=== PATIENT | female | born 1990 | race Caucasian/White ===

== ENCOUNTER 2024-01-18 17:03 | Emergency (ER) | payer OTHER, SELFPAY ==
[2024-01-18 17:08] VITALS: BP 131/86; PULSE 61; RESP 16; TEMP 36.6; O2SAT 99; BMI 31.5
--- NOTE | 2024-01-18 17:22 | CRLHL7_ITS ---
For Patients: As a result of the Century Cures Act, medical imaging exams and procedure reports are released immediately into your electronic medical record. You may view this report before your referring provider. If you have questions, please contact your health care provider. INDICATION: First trimester bleeding. TECHNIQUE: Ultrasound OB pelvis transvaginal. Real-time fermin-scale imaging of the pelvis was performed. COMPARISON: None. FINDINGS: Intrauterine gestation: Single. heart activity (bpm): 173. [place]-rump length: 1.3 cm. Estimated ultrasound age: 7 weeks 4 days. PATRICK by ultrasound: September 01, 2024. Yolk sac: Normal. Perigestational hemorrhage: Small 5 mm fluid collection adjacent to the gestational. Ovaries and adnexa: Unremarkable. Suspicious pelvic fluid collections: None. IMPRESSION: Single viable intrauterine . No sign of overt hemorrhage. Dictated by Roly Spear MD @ 01/18/2024 8:52:22 PM (Electronically Signed)
[2024-01-18 17:46] LABS: Basophils Percent Auto 0.1 % (0.0-3.0); Eosinophils Percent Auto 1.7 % (0.0-7.0); Hematocrit 40.1 % (33.0-51.0); Hemoglobin* 13.3 gm/dL (12.0-16.0); Immature Granulocytes Pct Auto 0.1 %; Lymphocytes Percent Auto 17.5 % (20-44); Mean Corpuscular HGB Conc 33 gm/dL (32-36); Mean Corpuscular Hemoglobin 30 pg (26-34); Mean Corpuscular Volume 91 fL (80-100); Monocytes Percent Auto 5.8 % (0.0-11.0); Neutrophils Percent Auto 74.8 % (42.0-72.0); Platelet Count* 260 K/uL (140-440); RDW Coefficient of Variation % 12.8 % (11.5-15.5); Red Blood Count 4.41 m/uL (4.00-5.20); White Blood Count* 15.34 K/uL (4.50-11.00)
[2024-01-18 17:50] LABS: Slide Review Reflex No
[2024-01-18 18:01] LABS: Chloride* 104 mmol/L (96-114); Sodium* 136 mmol/L (135-149)
[2024-01-18 18:02] LABS: Potassium* 3.7 mmol/L (3.6-5.1)
[2024-01-18 18:04] LABS: Creatinine* 0.6 mg/dL (0.5-1.5); Est. Creatinine Clearance* 123.68; Estimated Glomerular Filt Rate 121 ml/min
[2024-01-18 18:05] LABS: Anion Gap 7 mEq/L (7-15); Blood Urea Nitrogen* 11 mg/dL (5-24); Calcium* 8.8 mg/dL (8.4-10.6); Carbon Dioxide* 25 mmol/L (20-32); Glucose* 106 mg/dL (60-115)
--- NOTE | 2024-01-18 18:10 | ED.PREGNANCY ---
HPI - General Date Seen: 01/18/24 Chief complaint: OB/Uterine Contractions Stated complaint: 7 wks cramping&bleeding Time Seen by Provider: 01/18/24 17:04 Source: patient Mode of arrival: ambulatory Limitations: no limitations History of Present Illness HPI Narrative: Patient is a 7 weeks via IVF presenting to emergency department for vaginal bleeding and lower abdominal cramping. She states for the last few days she has been having some spotting that has gradually gotten worse. Today is the 1st time she felt like she needed to use a 10 on in removed after several hours and she states it still was not saturated. She still felt that she was bleeding though so she put in another tampon. She denies number school to go chest pain, shortness of breath, diarrhea, constipation, weakness, numbness, headache, vision changes. Has been having some nausea but currently is not feeling nauseated. Did not have any complication with her 1st . This was worse when she had done the IVF. Ultrasound done 1 week ago was normal. Eating drinking without issues. Denies hematochezia or melena. Denies dysuria, vaginal discharge. Is got seen in OB provider yet Related Data Home Medications ?Medication ?Instructions ?Recorded ?Confirmed Progest 01/18/24 aspirin 81 mg tablet,delayed 81 mg PO DAILY 01/18/24 01/18/24 release (Adult Aspirin Regimen) estradiol 0.1 mg/24 hr semiweekly transdermal 01/18/24 transdermal patch (Trinh) Allergies Allergy/AdvReac Type Severity Reaction Status Date / Time amoxicillin Allergy Mild Verified 01/18/24 17:14 codeine Allergy Mild Verified 01/18/24 17:14 Review of Systems Status of ROS: Reports: 10 or more systems reviewed and unremarkable except as noted in History and below PFSH PFS Social History Smoking Status: Never smoker How often do you have a drink containing alcohol: never AUDIT-C Alcohol total score: 0 Non-prescribed substance use: denies use Exam Narrative: Exam Narrative: Const: Well-nourished, Well-developed, in mild distress Eyes: PERRL, no conjunctival injection, and symmetrical lids HENT: Atraumatic external nose and ears. Moist mucous membranes. Neck: Symmetric, trachea midline, No thyromegaly. CVS: RRR, No murmurs or gallops. Peripheral pulses 2+ and equal in all extremities RESP: Unlabored respiratory effort. Clear to auscultation bilaterally. GI: Nontender/Nondistended, No rebound or guarding. MSK:Extremities w/o deformity, Normal Active ROM Skin: Warm, Dry. No rashes or lesions. Neuro: Normal Muscle tone, No focal neurological deficits. Psych: Awake, Alert, & Oriented x3. Appropriate mood and affect. Const: Vital Signs, click to edit/add: Vital Signs - 24 hr 01/18/24 17:08 01/18/24 20:07 01/18/24 20:08 Temperature 98 F Pulse Rate 63 70 Pulse Rate [Pulse Oximeter] 61 Respiratory Rate 16 20 Blood Pressure 131/75 Blood Pressure [Ri ght Upper Arm] 131/86 Pulse Oximetry 99 99 99 Oxygen Delivery Me thod Room Air Room Air 01/18/24 20:09 Temperature Pulse Rate 68 Pulse Rate [Pulse Oximeter] Respiratory Rate Blood Pressure Blood Pressure [Ri ght Upper Arm] Pulse Oximetry 99 Oxygen Delivery Me thod Room Air Course Vital Signs Vital signs: Initial Vital Signs Temperature 98 F 01/18/24 17:08 Temperature Source Temporal Artery Scan 01/18/24 17:08 Pulse Rate 61 01/18/24 17:08 Respiratory Rate 16 01/18/24 17:08 Blood Pressure 131/86 01/18/24 17:08 Blood Pressure Mean 101 01/18/24 17:08 Blood Pressure Position Supine 01/18/24 17:08 Pulse Oximetry 99 01/18/24 17:08 Oxygen Delivery Method Room Air 01/18/24 17:08 Vital Signs Temperature 98 F 01/18/24 17:08 Pulse Rate 61 01/18/24 17:08 Respiratory Rate 16 01/18/24 17:08 Blood Pressure 131/86 01/18/24 17:08 Pulse Oximetry 99 01/18/24 17:08 Oxygen Delivery Method Room Air 01/18/24 17:08 Temperature 98 F 01/18/24 17:08 Pulse Rate 68 01/18/24 20:09 Respiratory Rate 20 01/18/24 20:08 Blood Pressure 131/75 01/18/24 20:08 Pulse Oximetry 99 01/18/24 20:09 Oxygen Delivery Method Room Air 01/18/24 20:09 MDM - OB/Uterine Contractions MDM Narrative Medical decision making narrative: Patient is a 33 year female presenting for vaginal bleeding. She is 7 weeks . We will do an ultrasound to look for signs level could be causing bleeding. Will also do a CBC, BMP, hCG qualitative and a urinalysis. Is not needing anything for pain or nausea at this time. The CBC and a slightly elevated 15.34 is not as worried this could likely be from her family fairly a. A BMP shows no concerning abnormalities. The urinalysis shows large and ptotic no signs of UTI. Some had both a 1 [place] [id number]. Initial ultrasound preliminary read showed a normal ultrasound with a heart rate of 170 beats per minute. After his ultrasound the patient passed a clot in there appears to be a yolk sac within this. On exam it appears like there is a small fetus within but is hard to definitively say. I spoke to Dr. Simpson who recommends 78 1st surgical pathology if the patient does not want to keep it. Also recommends RhoGAM if she is Rh negative. Patient does not want to keep the likely yolk sac but is adamant that she wants a another ultrasound to confirm that there is no longer a viable . Patient did start having increase in her bleeding. She changed her pad and it was about half saturated after about 30 minutes. it appears that she has now passed the placenta in the toilet. This will also be sent for pathology. Primary for repeat ultrasound shows an empty uterus. Patient is now trying to go home but she will wait for the type and screen W. She has a positive and does not need RhoGAM. She will be discharged. Will update her with the results of the ultrasounds tomorrow if there are any concerning findings compared to the preliminary reads. Lab Data Labs: Lab Results 01/18/24 01/18/24 01/18/24 Range/Units 17:40 18:55 19:54 WBC 15.34 H (4.50-11.00) K/uL RBC 4.41 (4.00-5.20) m/uL Hgb 13.3 (12.0-16.0) gm/dL Hct 40.1 (33.0-51.0) % MCV 91 (80-100) fL MCH 30 (26-34) pg MCHC 33 (32-36) gm/dL RDW Coeff of Darshana 12.8 (11.5-15.5) % Plt Count 260 (140-440) K/uL Neut % (Auto) 74.8 H (42.0-72.0) % Lymph % (Auto) 17.5 L (20-44) % [place] % (Auto) 5.8 (0.0-11.0) % Eos % (Auto) 1.7 (0.0-7.0) % Baso % (Auto) 0.1 (0.0-3.0) % Neut # (Auto) 11.50 H (1.7-7.0) K/uL Lymph # (Auto) 2.70 (0.90-2.90) K/uL [place] # (Auto) 0.90 (0.00-0.90) K/UL Eos # (Auto) 0.30 (0.00-0.50) K/uL Baso # (Auto) 0.00 (0.00-0.30) K/uL Abs Immat Gran (auto) 0.00 (0.00-0.30) K/uL Imm/Tot Granulo (auto) 0.1 % Sodium 136 (135-149) mmol/L Potassium 3.7 (3.6-5.1) mmol/L Chloride 104 (96-114) mmol/L Carbon Dioxide 25 (20-32) mmol/L Anion Gap 7 (7-15) mEq/L BUN 11 (5-24) mg/dL Creatinine 0.6 (0.5-1.5) mg/dL Estimated Creat Clear 123.68 Estimated GFR 121 ml/min Glucose 106 (60-115) mg/dL Calcium 8.8 (8.4-10.6) mg/dL HCG, Quant 40526.00 mIU/mL Urine Color [place] A (Yellow) Urine Appearance Slightly Cloudy A (Clear) Urine pH 7.5 (5.0-8.5) Ur Specific [place] 1.020 (1.000-1.030) Urine Protein Trace A (Negative) Urine Glucose (UA) Negative (Negative) Urine Ketones Negative (Negative) Urine Blood 3+ A (Negative) Urine Nitrite Negative (Negative) Urine Bilirubin Negative (Negative) Urine Urobilinogen 0.2 (0.2-1.0) Ur Leukocyte Esterase Negative (Negative) Urine RBC >100 A (0-2) Urine WBC 0-2 (0-5) Ur Squamous Epith Cells Few (None-Few) Urine Bacteria None (None) Lab Acknowledgement Test Added Blood Type A Positive Antibody Screen NEGATIVE Imaging Data Transvaginal ultrasound: Attestation: I have reviewed the pertinent imaging results. Radiologist's impression: Single viable intrauterine . No sign of overt hemorrhage. Dictated by Roly Spear MD @ 01/18/2024 8:52:22 PM Transvaginal ultrasound 2.: Attestation: I have reviewed the pertinent imaging results. Radiologist's impression: Complete interval spontaneous since the earlier exam. Dictated by Roly Spear MD @ 01/18/2024 8:55:13 PM Discharge Plan Discharge Clinical Impression: Miscarriage Patient Disposition: Home, Self-Care Condition: Stable Instructions: Miscarriage (ED) Additional Instructions: You need to follow-up with [facility] or your IVF clinic. Return to emergency department for new or worsening symptoms, including fever, worsening abdominal pain, and/or worsening bleeding. Prescriptions: No Action Progest estradiol [Trinh] 0.1 mg/24 hr patch semiweekly transdermal aspirin [Adult Aspirin Regimen] 81 mg tablet,delayed release (DR/EC) 81 mg PO DAILY Follow Up/Referrals: Provider,Not a Local [Primary Care Provider] - Stand Alone Forms: [employer] Info Instructions
--- NOTE | 2024-01-18 19:00 | PC.NURSE ---
Pt states she was up to the bathroom, passed a large clot. Physician informed.
[2024-01-18 19:01] LABS: Appearance Urine Slightly Cloudy (Clear); Bilirubin Urine Negative (Negative); Blood Urine 3+ (Negative); Color Urine Pink (Yellow); Glucose Urine Negative (Negative); Ketones Urine Negative (Negative); Leukocyte Esterase Urine Negative (Negative); Nitrite Urine Negative (Negative); Protein Urine Trace (Negative); Urobilinogen Urine 0.2 (0.2-1.0); pH Urine 7.5 (5.0-8.5)
[2024-01-18 19:27] LABS: RBC Urine >100 (0-2); Squamous Epithelial Cell Urine Few (None-Few); WBC Urine 0-2 (0-5)
--- NOTE | 2024-01-18 19:57 | CRLHL7_ITS ---
For Patients: As a result of the Century Cures Act, medical imaging exams and procedure reports are released immediately into your electronic medical record. You may view this report before your referring provider. If you have questions, please contact your health care provider. INDICATION: Miscarriage. TECHNIQUE: Ultrasound OB pelvis transvaginal. Real-time fermin-scale imaging of the pelvis was performed. COMPARISON: None. FINDINGS: No sign of intrauterine or ectopic . Endometrium is empty. No signs of hemorrhage. The ovaries are of normal size. There are no suspicious fluid collections noted in the cul-de-sac. IMPRESSION: Complete interval spontaneous since the earlier exam. Dictated by Roly Spear MD @ 01/18/2024 8:55:13 PM (Electronically Signed)
[2024-01-18 20:07] VITALS: PULSE 63; O2SAT 99
[2024-01-18 20:08] VITALS: BP 131/75; PULSE 70; RESP 20; O2SAT 99
[2024-01-18 20:09] VITALS: PULSE 68; O2SAT 99
== END 2024-01-18 20:58 | disposition home or self-care (01) ==
PROVIDERS: Emergency Provider Student in an Organized Health Care Education/Training Program
DX: O03.4 Incomplete spontaneous abortion without complication (principal)
CPT/HCPCS: 36415; 76817; 80048; 81001; 84702; 85025; 86850; 86900; 86901; 88305; 99283; 99284

== ENCOUNTER 2024-06-10 15:00 | Outpatient (CLI) | payer OTHER, SELFPAY ==
--- NOTE | 2024-06-10 15:00 | CRLHL7_ITS ---
For Patients: As a result of the Century Cures Act, medical imaging exams and procedure reports are released immediately into your electronic medical record. You may view this report before your referring provider. If you have questions, please contact your health care provider. INDICATION: Dating and viability. IVF . COMPARISON: None. TECHNIQUE: Real-time fermin-scale imaging of the pelvis was performed. FINDINGS: Sonographic imaging demonstrates a single living intrauterine gestation. The embryo has a regular cardiac rate measuring 169 beats per minute. The embryo`s crown-rump length measures 6.0 cm which corresponds to a gestational age of 12 weeks 4 days with sonographic due date 12/19/2024. There is a developing placenta. No evidence of a perigestational hemorrhage. No free fluid in the pelvic cul-de-sac. The ovaries were not visualized. IMPRESSION: 1. Single living intrauterine gestation corresponding to an ultrasound gestational age of 12 weeks 4 days with sonographic due date 12/19/2024. 2. The clinical gestational age is 11 weeks 5 days. Dictated by Noemi Murrieta MD @ 06/11/2024 3:16:32 AM (Electronically Signed)
== END 2024-06-10 15:01 | disposition home or self-care (01) ==
LOC: US 15:01
PROVIDERS: Visit Provider Advanced Practice Midwife
DX: O09.811 Supervision of pregnancy resulting from assisted reproductive technology, first trimester (principal); Z3A.12 12 weeks gestation of pregnancy
CPT/HCPCS: 76801; 76817

== ENCOUNTER 2024-06-10 16:09 | Outpatient (CLI) | payer OTHER, SELFPAY | END 2024-06-10 16:10 | disposition home or self-care (01) | PROVIDERS: Visit Provider Advanced Practice Midwife | DX: Z34.91 Encounter for supervision of normal pregnancy, unspecified, first trimester (principal); Z3A.09 9 weeks gestation of pregnancy | CPT/HCPCS: 82565; 82570; 84156; 84450; 84460; 84520; 86592; 86703; 86704; 86706; 86762; 86787; 86803; 86850; 86900; 86901; 87086; 87340 ==

== ENCOUNTER 2024-06-22 13:17 | Emergency (ER) | payer OTHER, SELFPAY ==
[2024-06-22 13:20] VITALS: BP 138/92; PULSE 85; RESP 16; TEMP 36.7; O2SAT 99; BMI 34.7
--- NOTE | 2024-06-22 13:43 | ED.PREGNANCY ---
HPI - General Time Seen by Provider: 13:43 Date Seen: 06/22/24 Chief complaint: Urogenital Problems, Female Stated complaint: rectal mass/protrusion Time Seen by Provider: 06/22/24 13:38 Source: patient and RN notes reviewed Mode of arrival: ambulatory Limitations: no limitations History of Present Illness HPI Narrative: 33-year-old female about 12 weeks is coming in with concern of a protrusion or mass from her vagina. She has been dealing with some constipation, did use MiraLax yesterday and today. She was straining on the toilet, trying to have a bowel movement. She went to clean herself and felt a mass coming from the vagina. She notes that she has had no leaking, no bleeding. This was not from the rectal area. She states she could definitely feel it. She had 1 prior miscarriage, her was conceived by in vitro fertilization. She had her 1st OB clinic check, due date 12/25/2024. Her IVF embryo transfer was 04/08/2024. She did have a miscarriage in December of this year. Related Data Home Medications ?Medication ?Instructions ?Recorded ?Confirmed vit 168-iron 27 mg-folic 1 cap PO DAILY 06/10/24 06/22/24 acid 800 mcg-omega3 235 mg capsule (One-A-Day -1) Allergies Allergy/AdvReac Type Severity Reaction Status Date / Time amoxicillin Allergy Mild Verified 06/22/24 13:20 codeine Allergy Mild Verified 06/22/24 13:20 Review of Systems Narrative: As per HPI. 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 Lives with: and daughter Pets: 2 dogs Abuse: Denies past/present Special Diet: Denies Ok with a blood transfusion: yes Culture or tenriism beliefs: denies RISK FACTORS Exercise Times/wk: walks 2-3 times a week Depression/Anxiety: denies JOAQUIM: 0 PHQ 9: 0 Seat Belt Use: Routinely Smoking: Denies past/present Alcohol/day: Denies while Caffeine: couples times a week Drug Use: Denies past/present Chicken Pox: Yes as a child MRSA: Denies What is your current living situation?: I presently have a place to live Problems where you live: no known problems In the past 12 months, utilities in danger of being shut off: no In the past 12 mos, have been you worried that your food would run out before you had money to buy more?: never true In the past 12 mos, the food you bought just didn't last and you didn't have money to buy more?: never true Smoking Status: Never smoker Do you use any of these nicotine containing products: None Second hand tobacco smoke exposure: No How often do you have a drink containing alcohol: never AUDIT-C Alcohol total score: 0 Non-prescribed substance use: denies use How often does anyone, including family, friends and others, physically hurt you: never How often does anyone, including family, friends and others, insult or talk down to you: never How often does anyone, including family, friends and others, threaten you with harm: never How often does anyone, including family, friends and others, scream or curse at you: never Exam Const: Vital Signs, click to edit/add: Vital Signs - 24 hr 06/22/24 13:20 Temperature 98.0 F Pulse Rate [Pulse Oximeter] 85 Respiratory Rate 16 Blood Pressure [Ri ght Upper Arm] 138/92 H Pulse Oximetry 99 Gracie is a 33-year-old female that is alert, interactive, no apparent distress. She is ambulatory into the ED of her own accord. Sclera clear, speaking in complete sentences. Anus was some redundant anal tissue but no protrusion, no bleeding, no hemorrhoids noted. External genitalia appear normal. On the inner left peroneal area there is little scant bloody discharge, see nothing anywhere else along the vaginal opening or the anus. When patient bears down, see no protrusion rectally or vaginally. She on speculum exam has normal vaginal mucosa, see no discharge or bleeding. On bimanual exam there was a normal vaginal vault, feel no mass, cervix is high and posterior, can feel gravid uterus that is not tender. I do not see any prolapse on examination or with her bearing down. Documenting provider has reviewed patient's vital signs: yes Course Course ED Course: We will confirm normal obstetrical ultrasound. She could have had some vaginal Cozaar prolapse or rectal prolapse that is resolved. She is quite sure though that she felt this vaginally. I cannot find any mass or abnormality on examination at this time. Will confirm normal screening limited obstetrical ultrasound. Reevaluation(s) Time of Reevaluation #1: 15:02 Reevaluation #1: Preliminary report from plodder operator is healthy appearing intrauterine . She did not see anything vaginally as well. Cervix was long thick and closed by ultrasound per plodder operator. Patient admit she was worried it was maybe the feet is coming out. There was certainly no evidence of that here today. She has a reassuring intrauterine . We did discuss straining could potentially cause as some rectal prolapse into the vagina or just some vaginal prolapse with a lot of pressure with constipation. She will work on constipation and try to minimize straining. Vital Signs Vital signs: Initial Vital Signs Temperature 98.0 F 06/22/24 13:20 Temperature Source Temporal Artery Scan 06/22/24 13:20 Pulse Rate 85 06/22/24 13:20 Respiratory Rate 16 06/22/24 13:20 Blood Pressure 138/92 H 06/22/24 13:20 Blood Pressure Mean 107 H 06/22/24 13:20 Blood Pressure Position Sitting 06/22/24 13:20 Pulse Oximetry 99 06/22/24 13:20 Vital Signs Temperature 98.0 F 06/22/24 13:20 Pulse Rate 85 06/22/24 13:20 Respiratory Rate 16 06/22/24 13:20 Blood Pressure 138/92 H 06/22/24 13:20 Pulse Oximetry 99 06/22/24 13:20 Temperature 98.0 F 06/22/24 13:20 Pulse Rate 85 06/22/24 13:20 Respiratory Rate 16 06/22/24 13:20 Blood Pressure 138/92 H 06/22/24 13:20 Pulse Oximetry 99 06/22/24 13:20 Discharge Plan Discharge Clinical Impression: Intrauterine Patient Disposition: Home, Self-Care Condition: Stable Instructions: at 11 to 14 Weeks (ED) Additional Instructions: Minimize straining, work with salesperson hosiery on constipation if you are not sure what you should use or do. Can always try to increase natural fiber in your diet, stay well hydrated. If you have further concerns or issues, please seek re-evaluation. Activity Level: Activity as Tolerated Prescriptions: No Action One-A-Day -1 27 mg iron- 800 mcg-235 mg capsule 1 cap PO DAILY Follow Up/Referrals: Provider,Not a Local [Primary Care Provider] - Stand Alone Forms: [employer] Info Instructions
--- NOTE | 2024-06-22 13:50 | CRLHL7_ITS ---
For Patients: As a result of the Century Cures Act, medical imaging exams and procedure reports are released immediately into your electronic medical record. You may view this report before your referring provider. If you have questions, please contact your health care provider. INDICATION: Vaginal protrusion felt by patient. (Sic) COMPARISON: 06/10/2024 TECHNIQUE: Transabdominal and endovaginal pelvic ultrasound were performed. FINDINGS: [place] viable intrauterine . heart rate is 147 beats per minute. [place]-rump length is 7.3 cm corresponding to an EGA of 13 weeks 3 days with an PATRICK of 12/25/2024. Previously established PATRICK is also 12/25/2024. Endovaginal pelvic ultrasound shows the cervical length measured 5.1 cm. The cervix is closed. Posterior placenta. Placenta previa is noted. IMPRESSION: 1. The cervix is long and closed, measuring 5.1 cm. 2. Placenta previa. 3. heart rate is 147 beats per minute. Dictated by Remberto hSeffield MD @ 06/22/2024 3:46:06 PM (Electronically Signed)
== END 2024-06-22 15:16 | disposition home or self-care (01) ==
PROVIDERS: Emergency Provider Family Medicine
DX: O26.891 Other specified pregnancy related conditions, first trimester (principal); K59.00 Constipation, unspecified; Z3A.12 12 weeks gestation of pregnancy
CPT/HCPCS: 76815; 76817; 99283; 99284

== ENCOUNTER 2024-06-27 06:15 | Outpatient (CLI) | payer OTHER, SELFPAY | END 2024-06-27 06:16 | disposition home or self-care (01) | LOC: NFLDREF 17:43 | PROVIDERS: Visit Provider Advanced Practice Midwife | DX: O14.94 Unspecified pre-eclampsia, complicating childbirth (principal) | CPT/HCPCS: 82570; 84156 ==

== ENCOUNTER 2024-09-01 16:55 | Outpatient (CLI) | payer OTHER, SELFPAY | END 2024-09-01 16:56 | disposition home or self-care (01) | LOC: NFLDREF 09-02 07:23 | PROVIDERS: Visit Provider Internal Medicine Nephrology | DX: O12.10 Gestational proteinuria, unspecified trimester (principal) | CPT/HCPCS: 82570; 84156 ==

== ENCOUNTER 2024-09-12 14:08 | Outpatient (CLI) | payer OTHER, SELFPAY | END 2024-09-12 14:09 | disposition home or self-care (01) | LOC: NFLDREF 14:09 | PROVIDERS: Visit Provider Obstetrics & Gynecology | DX: Z83.2 Family history of diseases of the blood and blood-forming organs and certain disorders involving the immune mechanism (principal); Z13.0 Encounter for screening for diseases of the blood and blood-forming organs and certain disorders involving the immune mechanism | CPT/HCPCS: 81241 ==

== ENCOUNTER 2024-10-03 13:04 | Outpatient (CLI) | payer OTHER, SELFPAY | END 2024-10-03 13:05 | disposition home or self-care (01) | LOC: NFLDREF 10-07 05:47 | PROVIDERS: Visit Provider Internal Medicine Nephrology | DX: O12.13 Gestational proteinuria, third trimester (principal); Z3A.28 28 weeks gestation of pregnancy; Z11.3 Encounter for screening for infections with a predominantly sexual mode of transmission | CPT/HCPCS: 82570; 84156; 86592 ==

== ENCOUNTER 2024-10-07 13:52 | Outpatient (CLI) | payer OTHER, SELFPAY | END 2024-10-07 13:53 | disposition home or self-care (01) | LOC: NFLDREF 10-10 01:08 | PROVIDERS: Visit Provider Internal Medicine Nephrology | DX: O12.10 Gestational proteinuria, unspecified trimester (principal) | CPT/HCPCS: 82570; 84156 ==